=== PATIENT | female | born 1990 | race African-American/Black ===

== ENCOUNTER 2016-12-01 14:22 | Emergency (ER) | payer MEDICAID ==
[~2016-12-01] VITALS: Ht 154.9 cm; Wt 70.1 kg
[~2016-12-01 14:22] MED LIST: MIREIUD IU; NAPR40TA PO
[2016-12-01 14:43] VITALS: BP 120/79; PULSE 78; RESP 16; TEMP 99.4; O2SAT 100
[2016-12-01] MEDS ORDERED: SODIUM CHLORIDE 0.9% FLUSH 10 ML FLUSH IV FLUSH PRN (15:30)
--- NOTE | 2016-12-01 15:43 | PD ---
HPI Chief Complaint: Abdominal Pain Time Seen by Provider: 15:26 Travel History International Travel<30 days: No Contact w/Intl Traveler<30days: No Traveled to known affect area: No History of Present Illness HPI Patient presents with lower abdominal/pelvis pain which occurs for approximately 5 days after her menses for the past 3 years. History of C- section. Reports that the pain started approximate one month after her C- section. Denies bowel movement yesterday or today. Reports pain on urination. Denies any nausea vomiting. Denies . Denies any aggravating or alleviating factors. PFSH Past Medical History Medical History: Denies Significant Hx Diminished Hearing: No Immunizations Current: Yes ?: Not LMP: 11/15/16 Past Surgical History Appendectomy: Yes Section: Yes (X 2) Social History Alcohol Use: Yes (OCCASIONALLY) Tobacco Use: No (NEVER) Substance Use: No Allergies-Medications (Allergen,Severity, Reaction): Coded Allergies: No Known Allergies (Unverified , 12/01/16) Reported Meds & Prescriptions Reported Meds & Active Scripts Active Lortab (Hydrocodone-Acetaminophen) 5-325 Mg Tab 1-2 Tab PO Q6H PRN Review of Systems General / Constitutional: No: Fever Eyes: No: Visual changes HENT: No: Headaches Cardiovascular: No: Chest Pain or Discomfort Respiratory: No: Shortness of Breath Gastrointestinal: Positive: Abdominal Pain Genitourinary: No: Dysuria Musculoskeletal: No: Pain Skin: No Rash Neurologic: No: Weakness Psychiatric: No: Depression Endocrine: No: Polydipsia Hematologic/Lymphatic: No: Easy Bruising Physical Exam Narrative GENERAL: Well-nourished, well-developed patient. SKIN: Focused skin assessment warm/dry. HEAD: Normocephalic. EYES: No scleral icterus. No injection or drainage. NECK: Supple, trachea midline. No JVD or lymphadenopathy. CARDIOVASCULAR: Regular rate and rhythm without murmurs, gallops, or rubs. RESPIRATORY: Breath sounds equal bilaterally. No accessory muscle use. GASTROINTESTINAL: Abdomen soft, nondistended, diffuse tenderness, examination of the left and right upper abdomen elicits pelvic pain MUSCULOSKELETAL: No cyanosis, or edema. BACK: Nontender without obvious deformity. No CVA tenderness. Data Data Last Documented VS Vital Signs Date Time Temp Pulse Resp B/P Pulse Ox O2 Delivery O2 Flow Rate FiO2 7/8/17 17:55 88 16 121/71 100 12/01/16 16:51 Room Air 12/01/16 14:43 99.4 Orders Complete Blood Count With Diff (12/01/16 15:27) Comprehensive Metabolic Panel (12/01/16 15:27) Urinalysis - C+S If Indicated (12/01/16 15:27) Iv Access Insert/Monitor (12/01/16 15:27) Ecg Monitoring (12/01/16 15:27) Oximetry (12/01/16 15:27) NPO (12/01/16 15:27) Sodium Chloride 0.9% Flush (Ns Flush) (12/01/16 15:30) Ct Abd/Pel W Iv Contrast(Rout) (12/01/16 15:27) Iohexol 350 Inj (Omnipaque 350 Inj) (12/01/16 17:04) Labs Laboratory Tests Test 12/01/16 12/01/16 14:50 15:45 Urine Collection Type CLEAN CATCH Urine Color YELLOW Urine Turbidity CLEAR Urine pH 6.0 Urine Specific [place] 1.019 Urine Protein NEG mg/dL Urine Glucose (UA) NEG mg/dL Urine Ketones NEG mg/dL Urine Occult Blood NEG Urine Nitrite NEG Urine Bilirubin NEG Urine Leukocyte Esterase TRACE Urine RBC 0-3 /hpf Urine WBC 0-2 /hpf Urine Squamous Epithelial 6-8 /hpf Cells Urine Bacteria OCC /hpf Microscopic Urinalysis Comment CULT NOT INDICATED Urine Collection Time 14:50 White Blood Count 7.5 TH/MM3 Red Blood Count 3.89 MIL/MM3 Hemoglobin 11.3 GM/DL Hematocrit 34.8 % Mean Corpuscular Volume 89.5 FL Mean Corpuscular Hemoglobin 29.1 PG Mean Corpuscular Hemoglobin 32.6 % Concent Red Cell Distribution Width 12.7 % Platelet Count 302 TH/MM3 Mean Platelet Volume 7.7 FL Neutrophils (%) (Auto) 71.3 % Lymphocytes (%) (Auto) 20.9 % Monocytes (%) (Auto) 5.6 % Eosinophils (%) (Auto) 1.8 % Basophils (%) (Auto) 0.4 % Neutrophils # (Auto) 5.4 TH/MM3 Lymphocytes # (Auto) 1.6 TH/MM3 Monocytes # (Auto) 0.4 TH/MM3 Eosinophils # (Auto) 0.1 TH/MM3 Basophils # (Auto) 0.0 TH/MM3 CBC Comment DIFF FINAL Differential Comment Sodium Level 141 MEQ/L Potassium Level 3.8 MEQ/L Chloride Level 109 MEQ/L Carbon Dioxide Level 26.5 MEQ/L Anion Gap 6 MEQ/L Blood Urea Nitrogen 7 MG/DL Creatinine 0.74 MG/DL Estimat Glomerular Filtration 115 ML/MIN Rate Random Glucose 84 MG/DL Calcium Level 8.6 MG/DL Total Bilirubin 0.3 MG/DL Aspartate Amino Transf 22 U/L (AST/SGOT) Alanine Aminotransferase 39 U/L (ALT/SGPT) Alkaline Phosphatase 58 U/L Total Protein 7.4 GM/DL Albumin 3.8 GM/DL MDM Medical Decision Making Medical Screen Exam Complete: Yes Emergency Medical Condition: Yes Differential Diagnosis Endometriosis, colitis, abdominal adhesions, small bowel obstruction Narrative Course Assessment and plan discussed with patient at bedside Physician Communication Physician Communication Case discussed and care transferred to Dr. Marly Cleveland Hydrocodone-Acetaminophen (Lortab)5-325 Mg Tab1-2 Tab PO Q6H PRN (PAIN) #20 TAB Ref 0 Prov:Ambrosio Tapia MD 12/01/16 Rashi Browne MD Dec 01, 2016 15:43
[2016-12-01 15:45] VITALS: RESP 16; O2SAT 100
[2016-12-01 15:51] VITALS: BP 105/61; PULSE 70; RESP 16; O2SAT 100
[2016-12-01 16:01] LABS: AUTOMATED NEUTROPHIL # 5.4 TH/MM3 (1.8-7.7); BASOPHIL % 0.4 % (0.0-2.0); EOSINOPHIL # 0.1 TH/MM3 (0-0.4); EOSINOPHIL % 1.8 % (0.0-4.0); HEMATOCRIT 34.8 % (35.0-46.0); HEMO FLAGS DIFF FINAL; LYMPH % 20.9 % (9.0-44.0); LYMPHOCYTE # 1.6 TH/MM3 (1.0-4.8); MEAN CELL VOLUME 89.5 FL (80.0-100.0); MEAN CORPUSCULAR HEMOGLOBIN 29.1 PG (27.0-34.0); MEAN CORPUSCULAR HGB CONC 32.6 % (32.0-36.0); MONO % 5.6 % (0.0-8.0); NEUT % 71.3 % (16.0-70.0); PLATELET COUNT 302 TH/MM3 (150-450); RED BLOOD COUNT 3.89 MIL/MM3 (4.00-5.30); RED CELL DISTRIBUTION WIDTH 12.7 % (11.6-17.2); WHITE BLOOD COUNT 7.5 TH/MM3 (4.0-11.0)
[2016-12-01 16:05] LABS: BLOOD, URINE NEG (NEG); GLUCOSE,URINE NEG (NEG); KETONE, URINE NEG (NEG); NITRITE,URINE NEG (NEG)
[2016-12-01 16:08] LABS: CHLORIDE 109 MEQ/L (98-107); POTASSIUM 3.8 MEQ/L (3.5-5.1); SODIUM (NA) 141 MEQ/L (136-145)
[2016-12-01 16:09] LABS: METHOD OF COLLECTION CLEAN CATCH
[2016-12-01 16:10] LABS: BACTERIA, URINE OCC /hpf; COMMENT (UR) CULT NOT INDICATED; CULTURE IF INDICATED CULT NOT INDICATED; RBC, URINE 0-3 /hpf (0-3); URINE COLOR YELLOW (YELLW/STRAW); WBC, URINE 0-2 /hpf (0-5)
[2016-12-01 16:11] LABS: ANION GAP 6 MEQ/L (5-15); BICARBONATE 26.5 MEQ/L (21.0-32.0); BLOOD UREA NITROGEN 7 MG/DL (7-18)
[2016-12-01 16:14] LABS: ALT (GPT) 39 U/L (10-53); AST (GOT) 22 U/L (15-37); GLOMERULAR FILTRATION RATE 115 ML/MIN (>89)
[2016-12-01 16:16] LABS: TOTAL BILIRUBIN ADULT 0.3 MG/DL (0.2-1.0)
[2016-12-01 16:17] LABS: ALKALINE PHOSPHATASE 58 U/L (45-117)
[2016-12-01 16:51] VITALS: BP 133/71; PULSE 90; RESP 16; O2SAT 99
[2016-12-01] MEDS ORDERED: IOHEXOL 350 MG/ML 10 ML VIAL (for RAD DIAG) IV ONE (17:04)
--- NOTE | 2016-12-01 17:19 | RADRPT ---
EXAM DATE/TIME: 12/01/2016 16:41 1 [place] COMPARISON: No previous studies available for comparison. INDICATIONS : Lower abdominal pain that radiates to the back. IV CONTRAST: 90 cc Omnipaque 350 (iohexol) IV ORAL CONTRAST: No oral contrast ingested. RADIATION DOSE: 7.22 CTDIvol (mGy) MEDICAL HISTORY : None SURGICAL HISTORY : Appendectomy. section. ENCOUNTER: Initial ACUITY: 1 day PAIN SCALE: 6/10 LOCATION: Bilateral lower quadrant TECHNIQUE: Volumetric scanning of the abdomen and pelvis was performed. Using automated exposure control and ad justment of the mA and/or kV according to patient size, radiation dose was kept as low as reasonably achievable to obtain optimal diagnostic quality images. DICOM format image data is available electro nically for review and comparison. FINDINGS: LOWER LUNGS: The visualized lower lungs are clear. LIVER: Homogeneous density without lesion. There is no dilation of the biliary tree. No calcified gallston es. There is mild hepatic steatosis. The gallbladder is unremarkable in appearance. SPLEEN: Normal size without lesion. PANCREAS: Within normal limits. KIDNEYS: Normal in size and shape. There is no mass, stone or hydronephrosis. ADRENAL GLANDS: Within normal limits. VASCULAR: There is no aortic aneurysm. BOWEL/MESENTERY: The stomach, small bowel, and colon demonstrate no acute abnormality. There is no free intraperitone al air or fluid. ABDOMINAL WALL: There is no evidence of a hernia. There is a homogeneous soft tissue mass in the subcutaneous fat kailash ng the lower right anterior abdominal wall measuring approximately 2.5 x 2.2 cm in diameter. The slig htly bulges the skin contour. RETROPERITONEUM: There is no lymphadenopathy. BLADDER: No wall thickening or mass. REPRODUCTIVE: The uterus is unremarkable in appearance. The right ovary is at the upper limits of normal and poorly defined. In the left ovary there is a ring-enhancing cystic structure measuring up to 2 cm most cons istent with a partially decompressed cyst. There is a small amount of free fluid in the cul-de-sac. INGUINAL: There is no lymphadenopathy or hernia. MUSCULOSKELETAL: Within normal limits for patient age. CONCLUSION: 1. Ring-enhancing lesion in the left ovary most consistent with a partially collapsed ovarian cyst. T here is free fluid in the cul-de-sac. 2. Homogeneous soft tissue mass in the subcutaneous fat along the right anterior abdominal wall which bulges the skin surface. This is most consistent with a sebaceous cyst or other benign entity. 3. Mild hepatic steatosis. Caesar Alberts MD on December 01, 2016 at 17:07 Board Certified Radiologist. This report was verified electronically.
[2016-12-01] MEDS ORDERED: HYDR-3533 PO (17:48)
--- NOTE | 2016-12-01 17:50 | PD ---
Physical Exam Date Seen by Provider: Dec 01, 2016 Time Seen by Provider: 17:45 Narrative This 25-year-old female had presented with complaint of lower abdominal pain. She's been having this pain off and on for several years. It started after she had a section she had seen a vice president of human resources at one time and was told she had scar tissue. Dr. Browne has ordered blood work and a CT scan. The white count is normal. CT scan shows a 2 cm cyst on the left ovary is partially collapsed with some free fluid in the cul-de-sac. Suspicion is that she may have a leaking ovarian cyst. Her history is also suspicious for endometriosis she'll be given prescription for Lortab to use for pain and I have recommended to her that she should follow up with gynecology. Data Data Last Documented VS Vital Signs Date Time Temp Pulse Resp B/P Pulse Ox O2 Delivery O2 Flow Rate FiO2 12/01/16 15:51 70 16 105/61 100 Room Air 12/01/16 14:43 99.4 Orders Complete Blood Count With Diff (12/01/16 15:27) Comprehensive Metabolic Panel (12/01/16 15:27) Urinalysis - C+S If Indicated (12/01/16 15:27) Iv Access Insert/Monitor (12/01/16 15:27) Ecg Monitoring (12/01/16 15:27) Oximetry (12/01/16 15:27) NPO (12/01/16 15:27) Sodium Chloride 0.9% Flush (Ns Flush) (12/01/16 15:30) Ct Abd/Pel W Iv Contrast(Rout) (12/01/16 15:27) Iohexol 350 Inj (Omnipaque 350 Inj) (12/01/16 17:04) Labs Laboratory Tests Test 12/01/16 12/01/16 14:50 15:45 Urine Collection Type CLEAN CATCH Urine Color YELLOW Urine Turbidity CLEAR Urine pH 6.0 Urine Specific [place] 1.019 Urine Protein NEG mg/dL Urine Glucose (UA) NEG mg/dL Urine Ketones NEG mg/dL Urine Occult Blood NEG Urine Nitrite NEG Urine Bilirubin NEG Urine Leukocyte Esterase TRACE Urine RBC 0-3 /hpf Urine WBC 0-2 /hpf Urine Squamous Epithelial 6-8 /hpf Cells Urine Bacteria OCC /hpf Microscopic Urinalysis Comment CULT NOT INDICATED Urine Collection Time 14:50 White Blood Count 7.5 TH/MM3 Red Blood Count 3.89 MIL/MM3 Hemoglobin 11.3 GM/DL Hematocrit 34.8 % Mean Corpuscular Volume 89.5 FL Mean Corpuscular Hemoglobin 29.1 PG Mean Corpuscular Hemoglobin 32.6 % Concent Red Cell Distribution Width 12.7 % Platelet Count 302 TH/MM3 Mean Platelet Volume 7.7 FL Neutrophils (%) (Auto) 71.3 % Lymphocytes (%) (Auto) 20.9 % Monocytes (%) (Auto) 5.6 % Eosinophils (%) (Auto) 1.8 % Basophils (%) (Auto) 0.4 % Neutrophils # (Auto) 5.4 TH/MM3 Lymphocytes # (Auto) 1.6 TH/MM3 Monocytes # (Auto) 0.4 TH/MM3 Eosinophils # (Auto) 0.1 TH/MM3 Basophils # (Auto) 0.0 TH/MM3 CBC Comment DIFF FINAL Differential Comment Sodium Level 141 MEQ/L Potassium Level 3.8 MEQ/L Chloride Level 109 MEQ/L Carbon Dioxide Level 26.5 MEQ/L Anion Gap 6 MEQ/L Blood Urea Nitrogen 7 MG/DL Creatinine 0.74 MG/DL Estimat Glomerular Filtration 115 ML/MIN Rate Random Glucose 84 MG/DL Calcium Level 8.6 MG/DL Total Bilirubin 0.3 MG/DL Aspartate Amino Transf 22 U/L (AST/SGOT) Alanine Aminotransferase 39 U/L (ALT/SGPT) Alkaline Phosphatase 58 U/L Total Protein 7.4 GM/DL Albumin 3.8 GM/DL [facility] Medical Record Reviewed: Yes Supervised Visit with CHARITY: No Differential Diagnosis Differential includes ovarian cyst, endometriosis Narrative Course CT shows an ovarian cyst today Diagnosis Primary Impression: Ovarian cyst Scripts Hydrocodone-Acetaminophen (Lortab)5-325 Mg Tab1-2 Tab PO Q6H PRN (PAIN) #20 TAB Ref 0 Prov:Ambrosio Tapia MD 12/01/16 Disposition: 01 DISCHARGE HOME Condition: Stable Ambrosio Tapia MD Dec 01, 2016 17:50
[2016-12-01 17:55] VITALS: BP 121/71
== END 2016-12-01 18:06 | disposition home or self-care (01) ==
LOC: PHED 14:22
DX: N83.202 Unspecified ovarian cyst, left side (principal)
CPT/HCPCS: 74177; 80053; 81001; 85025; 99285; Q9967

== ENCOUNTER → 2017-01-24 | Day surgery (SDC) | payer MEDICAID ==
--- NOTE | 2017-01-23 10:18 | MH ---
cc: LIVIER ELIZONDO DATE OF ADMISSION 01/24/2017 REASON FOR ADMISSION This patient is a 26 year-old black female. She is a 2, para 2 and is being admitted to [facility] for wide excision of what appears to be an endometriotic implant in the scar. HISTORY OF PRESENT ILLNESS The patient was recently seen in our practice and describes dysmenorrhea and pain in this incision that is associated with her periods. The lump in the incision scar also increases in size around the time of her period. We saw her in the office and explained to her that this is probably the result of an endometriotic implant in the section incision and I suggested wide local excision. The risks of the procedure were discussed at length. PAST MEDICAL HISTORY Essentially noncontributory. PAST SURGICAL HISTORY Includes two sections. SOCIAL HISTORY She is a nonsmoker and a nondrinker. ALLERGIES She has no known allergies to medications. MEDICATIONS She is not presently on any medication. REVIEW OF SYSTEMS Essentially noncontributory. PHYSICAL EXAM The patient is seen well-developed, well-nourished in no acute distress. VITAL SIGNS: Her blood pressure was 123/70, pulse 70, respirations 12. HEAD, EYES, EARS, NOSE, AND THROAT: Negative. CHEST: Clear to auscultation. CARDIOVASCULAR: Regular rate. ABDOMEN: Revealed a length approximately 3 cm in the section scar which is tender to palpation. PELVIC: Her uterus is normal in size, somewhat tender, but there were no adnexal masses palpable. EXTREMITIES: Reveal no clubbing, cyanosis or edema. NEUROPSYCHIATRIC: The patient is oriented times three and showed no gross neural cranial deficit. IMPRESSION Endometriotic implant in the section. PLAN Excision MD TIMOTHY Martins/HOWARD /10:02 AM /10:06 AM
[~2017-01-24] VITALS: Ht 154.9 cm; Wt 71.2 kg
[~2017-01-24] MED LIST changes: +*morphine SULFATE 8 MG/ML PERIprocedure ONLY ONE; +ACETAMINOPHEN 1000 MG/100 ML 100 ML IV ONE; +CHLORHEXIDINE GLUCONATE 2 % 1 PACK (2 CLOTHS) TOPICAL PRN; +INSULIN HUMAN REGULAR 1,000 UNITS/10 ML VIAL SQ PRN; +LACTATED RINGER'S 1000 ML IV PRN; +METOPROLOL TARTRATE 25 MG TAB PO PRN; +MIDAZOLAM HCL 2 MG/2 ML VIAL ONE; -MIREIUD IU; -NAPR40TA PO; +ONDANSETRON HCL 4 MG/2 ML VIAL IV PUSH ONE; +ONDANSETRON HCL 4 MG/2 ML VIAL IV PUSH PRN; +POVIDONE IODINE 5% (ANTISEPSIS KIT) 4 APPLICATIONS EACH NARE PRN; +PROPOFOL 200 MG/20 ML AMP IV ONE; +SODIUM CHLORID 0.9% 500 ML IV PRN; +ceFAZolin 2 GM PREMIX 50 ML IV SCH; +oxyCODONE/ACETAMINOPHEN 5 MG/325 MG TAB PO PRN
[2017-01-24] MEDS: LIDOCAINE 2%/EPINEPHrine PF 1:200,000 20ML SDV ONE (09:06)
[2017-01-24 11:58] VITALS: BP 133/69; PULSE 79; RESP 20; TEMP 98.1; O2SAT 100
--- NOTE | 2017-01-26 22:04 | MP ---
cc: LIVIER KENT DATE OF SURGERY 01/24/17 PREOPERATIVE DIAGNOSIS Endometriotic implant in a previous caesarean section scar POSTOPERATIVE DIAGNOSIS Endometriotic implant in a previous caesarean section scar OPERATION Excision of the implant. SURGEON Diego Kent MD ANESTHESIA General ESTIMATED BLOOD LOSS 50 mL FINDINGS Consistent with a large implant in the subcutaneous fatty tissue above a previous caesarean section scar. PROCEDURE IN DETAIL The patient prepped and draped in the dorsal supine position. Scalpel blade #15 was used to make an incision above the implant in an elliptical manner. Using meticulous dissection using the Bovie and the Metzenbaum scissors the implant was dissected away from the subcutaneous fatty tissue. All bleeders were cauterized. Next, the subcutaneous fatty tissue was approximated using 3-0 Vicryl suture material in interrupted manner. This was done in two separate layers and then the epidermal layer was reapproximated using krissy. The patient returned to recovery room in stable condition. MD TIMOTHY Martins/ /9:30 AM /9:55 PM
== END | disposition home or self-care (01) ==
LOC: HSDC 06:36
PROVIDERS: ATTEND Obstetrics & Gynecology
DX: N80.0 Endometriosis of uterus (principal)
CPT/HCPCS: 00840; 58999; 88305; J0131; J0690; J2250; J2270; J2405; J3010; J7120

== ENCOUNTER 2017-08-16 22:00 | Emergency (ER) | payer MEDICAID ==
[~2017-08-16] VITALS: Ht 154.9 cm; Wt 70.0 kg
[2017-08-16 22:03] VITALS: BP 129/60; PULSE 89; RESP 14; TEMP 98.6; O2SAT 100
[2017-08-17] MEDS ORDERED: BACT800T5 PO (10:27)
[2017-08-17] MEDS ORDERED: IBUP1TAB7 PO (10:27)
[2017-08-17] MEDS ORDERED: NORC5TAB PO (10:27)
== END 2017-08-17 00:13 | disposition left against medical advice (07) ==
LOC: NED 23:59
DX: L02.91 Cutaneous abscess, unspecified (principal); Z53.21 Procedure and treatment not carried out due to patient leaving prior to being seen by health care provider
CPT/HCPCS: 99281

== ENCOUNTER 2017-08-17 08:34 | Emergency (ER) | payer MEDICAID ==
[~2017-08-17] VITALS: Ht 154.9 cm; Wt 70.5 kg
[2017-08-17 08:39] VITALS: BP 129/63; PULSE 89; RESP 16; TEMP 99.4; O2SAT 99
--- NOTE | 2017-08-17 09:54 | PD ---
HPI Chief Complaint: Lump, Cyst, Hernia Time Seen by Provider: 09:53 Travel History International Travel<30 days: No Contact w/Intl Traveler<30days: No Traveled to known affect area: No History of Present Illness HPI 26-year-old female with no significant medical history presents emergency department for evaluation of what she believes is an abscessed Bartholin's cyst. Patient states earlier this week she noticed a lesion similar to Bartholin's cyst that she has had in the past. She applied tea tree oil to the area. She states it has become more painful and inflamed over the last 2 days. Denies any vaginal discharge. No abdominal pain. No fever chills. She [facility] She has no other symptoms to report. PFSH Past Medical History Hx Anticoagulant Therapy: No Cancer: No Cardiovascular Problems: No Chemotherapy: No Cerebrovascular Accident: No Diabetes: No Diminished Hearing: No Endocrine: No Genitourinary: No Hepatitis: No Hiatal Hernia: No Immune Disorder: No Musculoskeletal: No Neurologic: No Psychiatric: No Reproductive: Yes (ENDOMETRIOTIC LESION POST C SECT.) Respiratory: No Immunizations Current: Yes Thyroid Disease: No ?: Not LMP: july 25, 2017 Past Surgical History Abdominal Surgery: Yes (APPENDECTOMY) AICD: No Appendectomy: Yes Cardiac Surgery: No Section: Yes (X 2) Ear Surgery: No Endocrine Surgery: No Eye Surgery: No Genitourinary Surgery: No Gynecologic Surgery: Yes ( X2) Hysterectomy: No Joint Replacement: No Oral Surgery: No Pacemaker: No Thoracic Surgery: No Social History Alcohol Use: Yes (OCCASIONALLY) Tobacco Use: No (NEVER) Substance Use: No Allergies-Medications (Allergen,Severity, Reaction): Coded Allergies: No Known Allergies (Unverified Adverse Reaction, Unknown, 08/17/17) Reported Meds & Prescriptions Reported Meds & Active Scripts Active [place] (Hydrocodone-Acetaminophen) 5 Mg-325 Mg Tab 1 Tab PO Q6H PRN Ibuprofen 800 Mg Tab 800 Mg PO Q8H PRN Bactrim DS (Sulfamethoxazole-Trimethoprim) 800-160 Mg Tab 1 Tab PO BID Review of Systems Except as stated in HPI: all other systems reviewed are Neg Physical Exam Narrative GENERAL: Well-nourished, well-developed female patient, in no acute distress. SKIN: No rashes, ecchymoses or lesions. Cool and dry. HEAD: Normocephalic. EYES: No scleral icterus. No injection or drainage. NECK: Supple, trachea midline. No JVD or lymphadenopathy. CARDIOVASCULAR: Regular rate and rhythm without murmurs, gallops, or rubs. RESPIRATORY: Breath sounds equal bilaterally. No accessory muscle use. GASTROINTESTINAL: Abdomen soft, non-tender, nondistended. GENITOURINARY: Normal external genitalia. There is a visible Bartholin's cyst on the left with erythema and edema extending up to the left labia majora. Vaginal vault without blood or drainage. nonenlarged. MUSCULOSKELETAL: No cyanosis, or edema. BACK: Nontender without obvious deformity. No CVA tenderness. Data Data Last Documented VS Vital Signs Date Time Temp Pulse Resp B/P (MAP) Pulse Ox O2 Delivery O2 Flow Rate FiO2 08/17/17 08:39 99.4 89 16 129/63 (85) 99 Orders Orders Lidocai-Epi 1%-1:100,000 Inj (Xylocaine- (08/17/17 10:00) Ibuprofen (Motrin) (08/17/17 10:00) Wound Culture And Gram Stain (08/17/17 09:57) Lidocai-Epi 1%-1:100,000 Inj (Xylocaine- (08/17/17 10:07) Ed Discharge Order (08/17/17 10:24) [facility] Medical Decision Making Medical Screen Exam Complete: Yes Emergency Medical Condition: Yes Medical Record Reviewed: Yes Differential Diagnosis Bartholin's cyst versus abscess versus folliculitis versus cellulitis Narrative Course 26-year-old female presents emergency department for evaluation of painful vaginal lesion. Physical exam is consistent with Bartholin's cyst. This does appear to be abscess with cellulitis extending up into the left labia majora. I &D is complete. Work catheters placed. Patient is counseled on care and advised to follow-up with her BIOMEDICAL MANAGER. She agrees to return immediately with any acute worsening of symptoms. Procedures Procedure Narrative INCISION AND DRAINAGE OF ABSCESS: The area was prepped and was sterilely draped. A subcutaneous wheal of 1 % Xylocaine with epinephrine with a total number 3 mL was used to anesthetize the area. The area was properly anesthetized. A number 11 scalpel was used to make a 1-cm incision across the area of the abscess. Cultures were obtained. The abscess was drained an irrigated with normal saline. Word catheter was placed. Patient was counseled on care. She tolerated this well. Diagnosis Primary Impression: Bartholin cyst Referrals: [facility] Primary Care Physician Patient Instructions: Bartholin Cyst (ED), General Instructions Departure Forms: Tests/Procedures, Work Release Enter return to work date: Aug 20, 2017 Additional Instructions: Warm compresses and sitz baths Follow-up with Edel VILLEGAS Call Saturday to schedule an appointment Do not remove the catheter on your own Return immediately with any acute worsening of symptom Med/Other Pt SpecificInfo: Prescription(s) given Scripts Hydrocodone-Acetaminophen ([place]) 5 Mg-325 Mg Tab 1 TAB PO Q6H Y for PAIN GREATER THAN 6, #15 TAB 0 Refills Prov: Jaquelin Marquez 08/17/17 Ibuprofen (Ibuprofen) 800 Mg Tab 800 MG PO Q8H Y for Pain/Inflammation, #30 TAB 0 Refills Prov: Jaquelin Marquez 08/17/17 Sulfamethoxazole-Trimethoprim (Bactrim DS) 800-160 Mg Tab 1 TAB PO BID for Infection, #14 TAB 0 Refills Prov: Jaquelin Marquez 08/17/17 Disposition: 01 DISCHARGE HOME Condition: Stable Jaquelin Marquez Aug 17, 2017 09:54
[2017-08-17] MEDS ORDERED: LIDOCAINE 1%/EPINEPHrine 1:100,000 SOLN 20 ML VIAL INFIL ONE (10:00)
[2017-08-17] MEDS ORDERED: IBUPROFEN 800 MG TAB PO ONE (10:00)
[2017-08-17] MEDS ORDERED: LIDOCAINE 1%/EPINEPHrine 1:100,000 SOLN 30 ML VIAL ONE (10:07)
[2017-08-17] MEDS ORDERED: BACT800T5 PO (10:27)
[2017-08-17] MEDS ORDERED: IBUP1TAB7 PO (10:27)
[2017-08-17] MEDS ORDERED: NORC5TAB PO (10:27)
== END 2017-08-17 10:35 | disposition home or self-care (01) ==
LOC: NEPD 08:34
DX: N75.0 Cyst of Bartholin's gland (principal); B96.1 Klebsiella pneumoniae [K. pneumoniae] as the cause of diseases classified elsewhere; B95.1 Streptococcus, group B, as the cause of diseases classified elsewhere
CPT/HCPCS: 56420; 86403; 87070; 87077; 87186